=== PATIENT | male | born 1980 | race Caucasian/White ===

== ENCOUNTER 2017-09-18 07:19 | Emergency (ER) | payer OTHER ==
[~2017-09-18] VITALS: Ht 190.5 cm; Wt 131.5 kg
[~2017-09-18 07:19] MED LIST: CIMETIDINE400 MG PO
[2017-09-18] MEDS ORDERED: ACETAMINOPHEN-1 EAC1 PO (07:36)
[2017-09-18] MEDS ORDERED: MOBIC7.5 MG PO (07:37)
[2017-09-18] MEDS ORDERED: GABAPENTIN300 MG PO (07:37)
[2017-09-18] MEDS ORDERED: PREDNISONE20 MG PO (10:16)
[2017-09-18] MEDS ORDERED: NORCO 10-325 T1 EACH PO (10:16)
[2017-09-18] MEDS ORDERED: CYCLOBENZAPRINE5 MG PO (10:16)
== END 2017-09-18 10:51 | disposition home or self-care (01) ==
LOC: ED 07:19
DX: M54.16 Radiculopathy, lumbar region (principal); Z79.899 Other long term (current) drug therapy
CPT/HCPCS: 72148; 96374; 96375; 99284; J1100; J1885; J2405; J3010